=== PATIENT | male | born 1965 | race Caucasian/White ===

== ENCOUNTER 2018-10-20 20:44 | Emergency (ER) | payer BC ==
[2018-10-20 20:52] VITALS: BP 143/90
--- NOTE | 2018-10-20 20:56 | UC ---
Skin Complaint HPI - HPI Summary HPI Summary: 53 y/o male presents to the urgent care c/o acute rash in b/L lower abdomen w/ some papules w/ itchiness in the Rt abdomen for the past 4 days. Pt reports he was out in the [place] this past [place] in [place] and he thinks he got exposed to Poison [place]. However he also thinks it might be shingles since he had chicken pox as a child. Pt has used hydrocortisone cream for the past 2 days which has helped for itchiness. Pt denies fever or pain, SOB, throat tightening, chest pain, abdominal pain, N/V/D. - History of Current Complaint Chief Complaint: UCSkin Time Seen by Provider: 10/20/18 20:55 Stated Complaint: RASH Hx Obtained From: Patient Onset/Duration: Gradual Onset, Lasting Days - 4 days, Still Present, Worse Since - today Skin Exposure Onset/Duration: Days Ago - 4 days ago at [facility] Timing: Constant Onset Severity: Mild Current Severity: Mild Pain Intensity: 0 Pain Scale Used: 0-10 Numeric Location: Diffuse - b/l lower abdomen Character: Pruritus, Redness Aggravating Factor(s): OTC Meds - hydrocortisone topical cream, Touch Alleviating Factor(s): OTC Creams/Salves Associated Signs & Symptoms: Positive: Rash - over B/L lower abdomen. Negative : Fever, Chills, Cough, Wheezing, Throat Tightening, Drainage, Tenderness, Red Streaks Related History: Possible Reaction to: Environmental Exposure - possible poison abril while being in the [place] in [facility] - Allergy/Home Medications Allergies/Adverse Reactions: Allergies Allergy/AdvReac Type Severity Reaction Status Date / Time No Known Allergies Allergy Verified 10/20/18 20:52 Home Medications: Home Medications Multivitamin [Multivitamins] 1 cap PO DAILY 10/20/18 [History Confirmed 10/20/18 ] PMH/Surg Hx/FS Hx/Imm Hx Previously Healthy: Yes Endocrine History: Dyslipidemia - Surgical History Surgical History: None - Family History Known Family History: Positive: Cardiac Disease - Social History Occupation: Employed Full-time Lives: With Family Alcohol Use: Weekly Alcohol Amount: 3x per week Substance Use Type: None Smoking Status (MU): Never Smoked Tobacco Review of Systems All Other Systems Reviewed And Are Negative: Yes Constitutional: Positive: Negative Skin: Positive: Rash - B/L lower abdomen w/ a rash. Rt side of lower abdomen w/ mild scattered vesicles an papules Eyes: Positive: Negative ENT: Positive: Negative Respiratory: Positive: Negative Cardiovascular: Positive: Negative Gastrointestinal: Positive: Negative Genitourinary: Positive: Negative Motor: Positive: Negative Neurovascular: Positive: Negative Musculoskeletal: Positive: Negative Neurological: Positive: Negative Psychological: Positive: Negative Is Patient Immunocompromised?: No Physical Exam - Summary Physical Exam Summary: Vital Signs Reviewed: Yes General: well developed, well nourished male sitting in the examining table w/o any apparent distress. Eyes: Positive: Conjunctiva Clear - PERRLA, EOMI ENT: Positive: Normal ENT inspection, Hearing grossly normal, Pharynx normal, TMs normal Neck: Positive: Supple, Nontender, No Lymphadenopathy Respiratory: Positive: Chest nontender, Lungs clear, Normal breath sounds Cardiovascular: Positive: RRR, No Murmur, Pulses Normal Abdomen Description: Positive: Nontender, No Organomegaly, Soft. Negative: CVA Tenderness (R), CVA Tenderness (L) Bowel Sounds: Positive: Present Musculoskeletal: Positive: Strength Intact, ROM Intact, No Edema Neurological Exam: Normal Psychological Exam: Normal Skin: Positive: rashes - B/l sides of lower abdomen w/ erythematous patch and RT side lower abdomen w/ scattered erythematous blisters and vesicles, particularly in linear streaks w/ mild signs of excoriation, no drainage observed, non tender to palpation. Triage Information Reviewed: Yes Vital Signs: Initial Vital Signs Temp 97.2 F 10/20/18 20:46 Pulse 71 10/20/18 20:46 Resp 16 10/20/18 20:46 BP 143/90 10/20/18 20:46 Pulse Ox 100 10/20/18 20:46 Course/Dx - Course Course Of Treatment: 53 y/o male presents to the urgent care c/o acute rash in b /L lower abdomen w/ some papules w/ itchiness in the Rt abdomen for the past 4 days. Pt reports he was [place] this past [place] in [place] and he thinks he got exposed to Poison [place]. However he also thinks it might be shingles since he had chicken pox as a child. Pt has used hydrocortisone cream for the past 2 days which has helped for itchiness. Pt denies fever or pain, SOB , throat tightening, chest pain, abdominal pain, N/V/D. Hx obtained. Pt w/ possible poison [place] rash. Pt given Prednsione 60mg PO at the clinic by the nurse to alleviate symptoms. PT Rx Prednisone PO taper dose and Triamcinolone topical cream and advises to take Benadryl PO for pruritus. If not improvement or worsening of symptoms to return to the clinic or f/u with [employer] Steen for further treatment. Pt's BP is elevated today advised to decrease salt in diet, monitor BP and f/u with PCP for further management. D/c instructions explained. PT understood and agreed with plan of care. - Differential Diagnoses - Skin Complaint Differential Diagnoses: Abscess, Contact Dermatitis, Local Allergic Reaction, Poison [place], Poison [place], Urticaria - Diagnoses Provider Diagnosis: Allergic dermatitis due to poison abril, Elevated BP without diagnosis of hypertension Discharge - Sign-Out/Discharge Documenting (check all that apply): Patient Departure - d/c home All imaging exams completed and their final reports reviewed: No Studies - Discharge Plan Condition: Stable Disposition: HOME Prescriptions: predniSONE TAB* [Deltasone 20 MG TAB*] 20 mg PO DAILY #8 tab Triamcinolone 0.1% CREAM (NF) [Kenalog 0.1% Cream (NF)] 1 applic TOPICAL BID #1 tube Patient Education Materials: Acute Rash (ED), Low-Sodium Diet (ED) Referrals: Lul BENÍTEZ,Rosetta Casey [Primary Care Provider] - 3 Days Ayla Steen [Medical Doctor] - If Needed Additional Instructions: 1-Please Start taking Prednisone PO starting tomorrow. first loading dose given today at the clinic. 2- Apply triamcinolone topical cream as directed over the rash. Avoid exposure to the sun 3- Take Benadryl PO q6hrs to alleviate itchiness. 4-If symptoms do not improve or worsen please f/u with your PCP or [employer] Dr Steen for further evaluation and treatment. 5- If symptoms worsen and you develop SOB or difficulty breathing please go immediately to the ER for further management. 6- Your BP is elevated today. please decrease salt in your diet, monitor BP and if it continues to be elevated please f/u with your PCP for further management - Billing Disposition and Condition Condition: STABLE Disposition: Home
[2018-10-20] MEDS ORDERED: predniSONE TAB* 20 MG PO ONE (21:06)
== END 2018-10-20 21:30 | disposition home or self-care (01) ==
LOC: UCEAST 20:44
DX: L23.7 Allergic contact dermatitis due to plants, except food (principal); R03.0 Elevated blood-pressure reading, without diagnosis of hypertension
CPT/HCPCS: 99202; G0463; J7512

== ENCOUNTER 2019-10-21 08:33 | Emergency (ER) | payer BC, OTHER ==
[2019-10-21 08:44] VITALS: BP 141/87
--- NOTE | 2019-10-21 09:00 | UC ---
Throat Pain/Nasal Ok HPI - HPI Summary HPI Summary: started feeling sick 6 days ago with runny nose, progressed over day to persistent cough, yellowid/bruno phlegm and fever he did have a flu shot this season He has been using natural remedies with little relief, last pm cough worse, diff to sleep. denies SOB/CP - History of Current Complaint Chief Complaint: UCGeneralIllness Stated Complaint: URI Time Seen by Provider: 10/21/19 08:37 Hx Obtained From: Patient, Family/Washing Machine Striper Onset/Duration: Gradual Onset Pain Intensity: 0 Cough: Nonproductive Associated Signs & Symptoms: Positive: Fever - Allergies/Home Medications Allergies/Adverse Reactions: Allergies Allergy/AdvReac Type Severity Reaction Status Date / Time No Known Allergies Allergy Verified 10/21/19 08:38 PMH/Surg Hx/FS Hx/Imm Hx Previously Healthy: Yes Endocrine History: Dyslipidemia - Surgical History Surgical History: None - Family History Known Family History: Positive: Cardiac Disease - Social History Occupation: Employed Full-time - utilization review nurse Lives: With Family Alcohol Use: Daily Alcohol Amount: 1 drink/ night Substance Use Type: None Smoking Status (MU): Never Smoked Tobacco Review of Systems All Other Systems Reviewed And Are Negative: Yes Constitutional: Positive: Fever, Fatigue Skin: Positive: Negative. Negative: Rash Eyes: Positive: Negative ENT: Positive: Nasal Discharge, Sinus Congestion Respiratory: Positive: Cough Cardiovascular: Positive: Negative Gastrointestinal: Positive: Negative Musculoskeletal: Positive: Negative Neurological: Positive: Negative. Negative: Headache Psychological: Positive: Negative Is Patient Immunocompromised?: No Physical Exam Triage Information Reviewed: Yes Appearance: Well-Appearing, No Pain Distress, Well-Nourished Vital Signs: Initial Vital Signs Temp 99 F 10/21/19 08:39 Pulse 91 10/21/19 08:39 Resp 20 10/21/19 08:39 BP 141/87 10/21/19 08:39 Pulse Ox 97 10/21/19 08:39 Vital Signs Reviewed: Yes Eyes: Positive: Conjunctiva Clear ENT: Positive: Pharynx normal - except for thick white PND, Nasal congestion, Nasal drainage Neck exam: Normal Neck: Positive: Supple Respiratory: Positive: Lungs clear, Other: - frequent harsh non-productive cough Cardiovascular Exam: Normal Cardiovascular: Positive: RRR Neurological Exam: Normal Neurological: Positive: Alert Psychological Exam: Normal Skin Exam: Normal Throat Pain/Nasal Course/Dx - Differential Dx/Diagnosis Differential Diagnosis/HQI/PQRI: Influenza, Sinusitis, URI, Other - pneumonia, bronchitis Provider Diagnosis: Sinusitis, Bronchitis Discharge ED - Sign-Out/Discharge Documenting (check all that apply): Patient Departure All imaging exams completed and their final reports reviewed: No Studies - Discharge Plan Condition: Good Disposition: HOME Prescriptions: Cefdinir cap* [Cefdinir 300 MG cap (NF)] 300 mg PO BID #20 cap Patient Education Materials: Sinusitis (ED), Acute Bronchitis (ED) Referrals: Rosetta Mccarty MD [Primary Care Provider] - 3 Days (if no better and also to recheck blood pressure ) Additional Instructions: drink plenty of fluids and rest start antibiotic and take as directed return if you symptoms worsen at any time - Billing Disposition and Condition Condition: GOOD Disposition: Home
== END 2019-10-21 09:09 | disposition home or self-care (01) ==
LOC: UCEAST 08:33
DX: J32.9 Chronic sinusitis, unspecified (principal); J40 Bronchitis, not specified as acute or chronic
CPT/HCPCS: 99212; G0463